=== PATIENT | female | born 1935 | race Two or more races ===

== ENCOUNTER 2021-02-22 12:17 | Outpatient (CLI) | payer OTHER ==
[~2021-02-22 12:17] MED LIST: COZAAR25 MG; HUMULIN 70/30 V10 ML; SYNTHROID100 MCG
== END 2021-02-22 12:18 | disposition home or self-care (01) ==
LOC: NUCLEAR 12:17
PROVIDERS: ATTEND Internal Medicine
DX: G30.0 Alzheimer's disease with early onset (principal)
CPT/HCPCS: 78803; A9557